=== PATIENT | male | born 1965 | race Caucasian/White ===

== ENCOUNTER 2016-08-27 10:34 | Emergency (ER) | payer OTHER ==
[~2016-08-27] VITALS: Ht 172.7 cm; Wt 90.9 kg
[2016-08-27] MEDS ORDERED: SYMB80INH INH (10:42)
[2016-08-27] MEDS ORDERED: LIDOCAINE W/EPINEPHRINE 1% 20ML VIAL SC ONE (11:15)
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
[2016-08-27] MEDS ORDERED: KEFL500C17 PO (11:37)
[2016-08-27] MEDS ORDERED: CEPHALEXIN 500 MG CAP PO ONE (11:45)
== END 2016-08-27 11:46 | disposition home or self-care (01) ==
LOC: M ED 10:34
DX: S51.811A Laceration without foreign body of right forearm, initial encounter (principal); J45.909 Unspecified asthma, uncomplicated; F17.210 Nicotine dependence, cigarettes, uncomplicated; W26.0XXA Contact with knife, initial encounter; Y92.238 Other place in hospital as the place of occurrence of the external cause; Y99.9 Unspecified external cause status; Y93.9 Activity, unspecified; Z88.0 Allergy status to penicillin; Z79.899 Other long term (current) drug therapy

== ENCOUNTER → 2023-04-18 | Outpatient (CLI) | payer OTHER ==
[~2023-04-18] MED LIST: KEFL500C17 PO; SYMB80INH INH
== END ==
LOC: M RAD 10:01
PROVIDERS: ATTEND Physician Assistant
DX: R91.8 Other nonspecific abnormal finding of lung field (principal)

== ENCOUNTER → 2023-10-29 | Outpatient (REF) | LOC: M PLAIMG 09:36 | PROVIDERS: ATTEND Internal Medicine | DX: Z00.00 Encounter for general adult medical examination without abnormal findings (principal) ==